=== PATIENT | male | born 1965 | race Caucasian/White ===

== ENCOUNTER → 2021-07-04 | Day surgery (SDC) | payer BC, OTHER ==
[~2021-07-04] VITALS: Ht 180.3 cm; Wt 89.8 kg
[~2021-07-04] MED LIST: COZAAR 25MG TAB25 MG PO; HYDROCODON-ACE1 EAC2 PO; LEXAPRO20 MG PO
[2021-07-04 08:42] LABS: BUN/CREATININE RATIO 15 (0-10)
== END | disposition home or self-care (01) ==
LOC: OR 07:43
PROVIDERS: Orthopaedic Surgery
DX: D21.11 Benign neoplasm of connective and other soft tissue of right upper limb, including shoulder (principal); I10 Essential (primary) hypertension; F40.240 Claustrophobia; R94.31 Abnormal electrocardiogram [ECG] [EKG]; Z88.8 Allergy status to other drugs, medicaments and biological substances; Z79.899 Other long term (current) drug therapy
CPT/HCPCS: 71045; 80048; 93005; J0690; J1100; J2001; J2250; J2405; J2704; J3010; J7120